=== PATIENT | female | born 1945 ===

== ENCOUNTER 2020-01-29 07:22 | Day surgery (SDC) | payer OTHER ==
[~2020-01-29 07:22] MED LIST: CARDIZEM CD180 M1 PO; COZAAR100 MG PO; MONTELUKAST SOD10 MG PO; OMEPRAZOLE MAGN20 MG PO; PEPCID20 MG PO; RALOXIFENE HCL60 MG PO; SYMBICORT 16010.2 GM IH; SYNTHROID50 MCG PO; ZOCOR20 MG PO
[2020-01-29] MEDS ORDERED: COLACE100 MG PO (11:25)
[2020-01-29] MEDS ORDERED: PERCOCET 5-3251 EACH PO (11:25)
== END 2020-01-29 16:10 | disposition home or self-care (01) ==
LOC: CIR.AMB 07:22
PROVIDERS: ATTEND Surgery
DX: D12.9 Benign neoplasm of anus and anal canal (principal); Z20.828 Contact with and (suspected) exposure to other viral communicable diseases; K64.8 Other hemorrhoids

== ENCOUNTER 2025-03-04 09:00 | Day surgery (SDC) | payer OTHER ==
[2025-02-18 11:05] VITALS: BP 150/79
[~2025-03-04] VITALS: Ht 152.4 cm; Wt 39.5 kg
[~2025-03-04 09:00] MED LIST changes: +BUPIVACAINE HCL 30 ML VIAL IJ ONE; +COLACE100 MG PO; +DIBUCAINE 30 GM TUBE RECTAL ONE; +EXELON1 EAC1 TD; +HEMOSTATIC MATRIX 1 KIT KIT TOP ONE; +LIDOCAINE HCL 1%/EPINEPHRINE 20ML VIAL IJ ONE; +METRONIDAZOLE/SODIUM CHLORIDE 500 MG/100 ML PIGGYBACK IV ONE; +NAMENDA1 EACH PO; +PERCOCET 5-3251 EACH PO; +POVIDONE-IODINE 118 ML BOTT TOP ONE; +ZOLOFT25 MG PO; +levoFLOXacin IN DEXTROSE 5 % 5 MG/ML PIGGYBAG IV ONE
[2025-03-04] MEDS ORDERED: TAMSULOSIN HCL 0.4 MG CAP PO ONE ×2 (09:30→10:07)
[2025-03-04] MEDS ORDERED: OXYCODONE HCL5 MG PO (10:13)
== END 2025-03-04 13:10 | disposition home or self-care (01) ==
LOC: CIR.AMB 09:00
PROVIDERS: ATTEND Surgery
DX: K64.2 Third degree hemorrhoids (principal); K64.4 Residual hemorrhoidal skin tags; K62.5 Hemorrhage of anus and rectum; Z88.0 Allergy status to penicillin